=== PATIENT | female | born 1950 | race Caucasian/White ===

== ENCOUNTER → 2016-04-18 | Outpatient (CLI) | payer OTHER, MEDICARE | LOC: FIMAGING 16:21 | PROVIDERS: ATTEND Nurse Practitioner | DX: R22.1 Localized swelling, mass and lump, neck (principal) ==

== ENCOUNTER 2016-04-23 13:07 | Emergency (ER) | payer OTHER, MEDICARE ==
[2016-04-23 13:22] VITALS: BP 118/82; PULSE 65; TEMP 97.3; O2SAT 94
--- NOTE | 2016-04-23 13:26 | EDPHY ---
H & P Time Seen by Provider: 04/23/16 13:25 HPI/ROS: CHIEF COMPLAINT: Hip pain. HISTORY OF PRESENT ILLNESS: The patient is a 65-year-old female who presents after stepping off the back of a pickup truck and falling onto her right hip. She now has pain with range of motion of her right hip. Walking is painful but she is able to walk without assistance. The pain does not radiate and is moderate in nature. She did not hit her head or lose consciousness. She denies other pains. REVIEW OF SYSTEMS: A complete 10-point review of systems was performed and is negative except for those items mentioned in the HPI. Past Medical/Surgical History: Lymphoma. Social History: Former smoker. Smoking Status: Former smoker Physical Exam: General Appearance: Alert, no distress Head: Atraumatic Eyes: No conjunctival erythema, PERRLA, EOMI ENT, Mouth: No hemotympanum, no oral trauma, no bony tenderness Neck: Non-tender, full range of motion without pain Respiratory: No chest wall tenderness, lungs clear bilaterally Cardiovascular: Regular rate and rhythm Abdomen: Abdomen is soft and non tender Skin: No lacerations, no abrasions Back: No midline T/L/S tenderness. Tenderness over sacrum. Extremities: Pelvis is stable and nontender; no extremity tenderness or deformity, full range of motion without pain Neurological: A&Ox3, normal motor function, normal sensory exam, cranial nerves intact Psychiatric: Mood and affect normal Constitutional: Initial Vital Signs Temperature (C) 36.3 C 04/23/16 13:19 Heart Rate 65 04/23/16 13:19 Blood Pressure 118/82 H 04/23/16 13:19 O2 Sat (%) 94 04/23/16 13:19 O2 Delivery Mode Room Air Allergies/Adverse Reactions: No Known Allergies Allergy (Verified 04/23/16 13:22) Home Medications: Medication Instructions Recorded NK [No Known Home Meds] 04/23/16 Medical Decision Making - Diagnostics Imaging: Right hip/pelvis x-ray reviewed by me reveals no acute fracture. ED Course/Re-evaluation: Right hip/pelvis x-ray ordered. 1400: X-ray negative as interpreted by me. I discussed this with the patient at this time. I answered all of her questions. She is comfortable being discharged and understands to follow up with her PCP. Differential Diagnosis: Differential diagnosis includes though it is not limited to fracture, intracranial hemorrhage, pneumothorax, hemothorax, intra-abdominal hemorrhage. Departure - Departure Disposition: Home, Routine, Self-Care Clinical Impression: Contusion of hip, right Qualifiers: Encounter type: initial encounter Qualified Code(s): S70.01XA - Contusion of right hip, initial encounter Condition: Good Instructions: Hip Contusion (ED) Additional Instructions: Take 600mg Ibuprofen every 6-8 hours as needed for pain for the next 3 days only. Ice affected are as needed for pain. Follow up with your primary care provider in the next 3-4 days if symptoms are not improving. If you need a primary care provider you have been given the telephone number of the on-call PCP. Return to the emergency department if you experience serious worsening of condition. Referrals: Estefania Childs MD [Medical Doctor] - As per Instructions Report Scribed for: Vaishnavi Fraser Report Scribed by: Jr Olivares Date of Report: 04/23/16 Time of Report: 13:26 Physician Review and Approval Statement: 04/23/16 13:27 Portions of this note were transcribed by a certified court/medical interpreter. I personally performed a history, physical exam, medical decision making, and confirmed accuracy of information the transcribed note.
== END 2016-04-23 14:06 | disposition home or self-care (01) ==
DX: S70.01XA Contusion of right hip, initial encounter (principal); Z85.72 Personal history of non-Hodgkin lymphomas; Z87.891 Personal history of nicotine dependence; V58.4XXA Person boarding or alighting a pick-up truck or van injured in noncollision transport accident, initial encounter; Y92.410 Unspecified street and highway as the place of occurrence of the external cause; Y93.89 Activity, other specified

== ENCOUNTER → 2017-02-27 | Outpatient (CLI) | payer OTHER, MEDICARE | LOC: CIMAGING 08:28 | PROVIDERS: ATTEND Internal Medicine Hematology & Oncology | DX: Z12.31 Encounter for screening mammogram for malignant neoplasm of breast (principal) ==

== ENCOUNTER → 2018-04-10 | Outpatient (CLI) | payer OTHER, MEDICARE | LOC: CIMAGING 07:58 | PROVIDERS: ATTEND Internal Medicine Hematology & Oncology | DX: Z12.31 Encounter for screening mammogram for malignant neoplasm of breast (principal) ==